=== PATIENT | female | born 1980 | race Caucasian/White ===

== ENCOUNTER 2017-02-25 16:20 | Emergency (ER) | payer MEDICAID ==
[2017-02-25] MEDS: METHYLPREDNISOLONE 125 MG INJ IM (18:40)
[2017-02-25] MEDS: DIPHENHYDRAMINE 50 MG INJ IM (18:41)
== END 2017-02-25 19:38 | disposition home or self-care (01) ==
LOC: FTE 16:20
DX: R21 Rash and other nonspecific skin eruption (principal)
CPT/HCPCS: 96372; 99284-25

== ENCOUNTER 2017-11-24 22:12 | Emergency (ER) | payer SELFPAY, MEDICAID ==
[2017-11-24] MEDS: FAMOTIDINE 20 MG INJ IV (22:59)
[2017-11-24] MEDS ORDERED: SODIUM CHLORIDE 0.9% 1L BAG IV* (23:00)
[2017-11-24] MEDS: METHYLPREDNISOLONE 125 MG INJ IV (23:02)
[2017-11-24] MEDS: DIPHENHYDRAMINE 50 MG INJ IV (23:02)
[2017-11-24] MEDS: SOD CHLORIDE 0.9% 1,000 ML IV (23:05)
[2017-11-25] MEDS: DIPHENHYDRAMINE 25 MG CAP PO (00:41)
== END 2017-11-25 00:45 | disposition home or self-care (01) ==
LOC: FTE 11-25 00:45
DX: R21 Rash and other nonspecific skin eruption (principal)
CPT/HCPCS: 96374; 96375; 99284-25